=== PATIENT | female | born 1990 | race Caucasian/White ===

== ENCOUNTER 2016-07-31 09:21 | Observation (INO) | payer OTHER ==
--- NOTE | ~2016-07-31 | OR ---
Unit #: [id number] #: [id number] Patient: ISSA LAZO [id number] [address] [address] [id number] MR#: [id number] NAME: ISSA LAZO ROOM: 221 Date of Procedure: 07/31/2016 Admission Date: 07/31/2016 Surgeon: Dereje Hernandez M.D. : 1990 Attending Physician: Shelton Schumacher M.D. OPERATIVE REPORT PREOPERATIVE DIAGNOSIS Appendicitis. POSTOPERATIVE DIAGNOSIS Appendicitis. PROCEDURE PERFORMED Laparoscopic appendectomy. CARGO MATE None. ANESTHESIA General. ESTIMATED BLOOD LOSS Minimal. IV FLUIDS 800 crystalloid. COMPLICATIONS None. INDICATIONS FOR PROCEDURE The patient is a lady, who presents with appendicitis. DESCRIPTION OF PROCEDURE The patient was taken to the operating theater and placed in supine position. General anesthesia was induced. Her abdomen was prepped and draped. A 5-mm Optiview trocar was placed left of the midline without difficulty. The abdomen was insufflated to 15 mmHg with CO2. Under direct vision, I placed a left lower quadrant 5 mm, right lower quadrant 10 mm. General inspection of the abdomen revealed appendicitis, nonperforated. I saw no other abnormalities. I mobilized the right colon using Bovie electrocautery. I was able to fire a LORE stapler across the mesoappendix as well as the appendix proper to amputate the appendix. This was then placed in an Endobag and removed via the 10 mm port site. The hemostasis was adequate. I closed the fascia with 0 Vicryl and skin with 4-0 Vicryl. The patient tolerated the procedure well and sent to recovery room in good condition. Unit #: [id number] #: [id number] Patient: ISSA LAZO Dictated by... Albertina SandraO/linda TD: 08/01/2016 05:06 JOB #: [id number] OPERATIVE REPORT Page 1 of 1 X Dereje Hernandez MD PROCEDURE OPERATIVE NOTE
[~2016-07-31 09:21] MED LIST: MEDROL PO; VISTARIL PO
[2016-07-31] MEDS ORDERED: PROZAC PO (12:09)
[2016-07-31] MEDS ORDERED: HYDROCODON-ACE1 EAC9 PO (14:54)
== END 2016-07-31 18:46 | disposition home or self-care (01) ==
LOC: CEDOF 11:18 → C2A 11:25
DX: K35.80 Unspecified acute appendicitis (principal); F17.200 Nicotine dependence, unspecified, uncomplicated
CPT/HCPCS: 88304; 96374; G0378; J0330; J1100; J1885; J2250; J2405; J2543; J2710; J3010

== ENCOUNTER 2016-08-04 17:26 | Emergency (ER) | payer OTHER ==
[~2016-08-04 17:26] MED LIST changes: +HYDROCODON-ACE1 EAC9 PO; +PROZAC PO
== END 2016-08-04 19:03 | disposition left against medical advice (07) ==
LOC: CED 17:26
DX: Z53.21 Procedure and treatment not carried out due to patient leaving prior to being seen by health care provider (principal)